=== PATIENT | female | born 1950 | race Two or more races ===

== ENCOUNTER 2020-11-15 09:23 | Outpatient (CLI) | payer OTHER | END 2020-11-15 09:34 | disposition home or self-care (01) | LOC: TOM 09:23 | PROVIDERS: ATTEND Internal Medicine Gastroenterology | DX: K63.5 Polyp of colon (principal); Z86.010 Personal history of colon polyps; I48.20 Chronic atrial fibrillation, unspecified; J45.909 Unspecified asthma, uncomplicated ==

== ENCOUNTER 2024-01-10 09:57 | Outpatient (CLI) | payer OTHER | END 2024-01-10 10:10 | disposition home or self-care (01) | LOC: TOM 09:57 | PROVIDERS: ATTEND Internal Medicine Gastroenterology | DX: R19.5 Other fecal abnormalities (principal); Z79.01 Long term (current) use of anticoagulants ==